=== PATIENT | male | born 1965 | race Hispanic/Latino ===

== ENCOUNTER 2023-04-16 14:06 | Emergency (ER) | payer SELFPAY ==
[2023-04-16] MEDS ORDERED: Acetaminophen 500 MG TAB ONE (14:44)
== END 2023-04-16 16:09 | disposition home or self-care (01) ==
LOC: NAV ERS 14:06
DX: U07.1 COVID-19 (principal); J06.9 Acute upper respiratory infection, unspecified; E11.9 Type 2 diabetes mellitus without complications
CPT/HCPCS: 71045; 87081; 87430; 87635; 87804